=== PATIENT | male | born 1995 | race Caucasian/White ===

== ENCOUNTER 2023-08-30 07:39 | Emergency (ER) | payer SELFPAY ==
[~2023-08-30] VITALS: Ht 167.6 cm; Wt 78.9 kg
[2023-08-30 08:01] VITALS: BP 133/61; PULSE 76; RESP 19; TEMP 97.5; O2SAT 95
[2023-08-30] MEDS ORDERED: NAPR-1704 PO (09:46)
[2023-08-30] MEDS ORDERED: TRAM-748 PO (09:46)
== END 2023-08-30 10:05 | disposition home or self-care (01) ==
LOC: MED 07:39
DX: S93.601A Unspecified sprain of right foot, initial encounter (principal); Z79.899 Other long term (current) drug therapy; Z88.0 Allergy status to penicillin; Z88.1 Allergy status to other antibiotic agents; W22.8XXA Striking against or struck by other objects, initial encounter; Y93.89 Activity, other specified; Y92.89 Other specified places as the place of occurrence of the external cause; Y99.8 Other external cause status
CPT/HCPCS: 73630; 99283